=== PATIENT | female | born 1980 | race Hispanic/Latino ===

== ENCOUNTER 2020-06-25 00:15 | Inpatient (IN) | payer OTHER ==
[~2020-06-25] VITALS: Ht 162.8 cm; Wt 145.3 kg
[2020-06-25 00:42] LABS: ABG BASE EXCESS 0.2 mmol/L (-2.0-3.0); ABG HCO3 22.7 mmol/L (21.0-28.0); ABG OXYGEN SATURATION 94.2 % (95.0-99.0); ABG PCO2 31 mmHg (32-45)
[2020-06-25] MEDS ORDERED: ASPIRIN 325 MG TABLET ONE (01:36)
[2020-06-25] MEDS ORDERED: ONDANSETRON HCL 4 MG/2 ML VIAL ONE (01:36)
[2020-06-25] MEDS ORDERED: DEXAMETHASONE SOD PHOSPHATE 10MG/ML 1ML VIAL ONE (01:36)
[2020-06-25 01:37] LABS: BASOPHILS % (AUTO) 0.3 % (0.0-5.0); HEMATOCRIT 39.5 % (36-48); LYMPHOCYTES % (AUTO) 19.5 % (21.0-51.0); MEAN CORPUSCULAR HEMOGLOBIN 25.3 pg (27.0-33.0); MEAN CORPUSCULAR HGB CONC 32.2 g/dL (32.0-36.0); MEAN CORPUSCULAR VOLUME 78.7 fL (79-99); MONOCYTES % (AUTO) 4.1 % (3.0-13.0); NEUTROPHILS % (AUTO) 75.6 % (40.0-77.0); PLATELET COUNT (AUTO) 242 K/uL (130-400); RED BLOOD CELL COUNT(AUTO) 5.02 MIL/uL (4.00-5.50); RED CELL DISTRIBUTION WIDTH 17.3 % (11.0-15.5); WHITE BLOOD COUNT (AUTO) 6.7 K/uL (4.8-10.8)
[2020-06-25] MEDS ORDERED: CEFTRIAXONE SODIUM 1 GM ONE (01:37)
[2020-06-25] MEDS ORDERED: ACETAMINOPHEN EXTRA STRENGTH 500 MG TABLET ONE (03:03)
[2020-06-25 03:30] LABS: ALBUMIN 3.1 g/dL (3.5-5.0); BILIRUBIN,TOTAL 0.5 mg/dL (0.2-1.0); CREATININE 0.7 mg/dL (0.5-1.5); TOTAL PROTEIN, SERUM 7.9 g/dL (6.0-8.3)
[2020-06-25] MEDS ORDERED: FAMOTIDINE/PF 20 MG/2 ML VIAL IV ONE (04:33)
[2020-06-25] MEDS ORDERED: ERGOCALCIFEROL (VITAMIN D2) 50,000 UNIT CAPSULE PO ONE (04:45)
[2020-06-25] MEDS: AZITHROMYCIN 500MG+NS 250ML 250 ML IV SCH (04:45)
[2020-06-25] MEDS ORDERED: SODIUM CHLORIDE 0.9% 1000ML 1,000 ML IV SCH (05:00)
[2020-06-25] MEDS ORDERED: ONDANSETRON HCL 4 MG/2 ML VIAL IV PRN (05:00)
[2020-06-25] MEDS ORDERED: ACETAMINOPHEN 325 MG TAB PO PRN (05:00)
[2020-06-25] MEDS ORDERED: NITROGLYCERIN 0.4 MG SL TAB SL PRN (05:00)
[2020-06-25] MEDS ORDERED: ALBUTEROL INHALER 90MCG/INH IH ONE (05:43)
[2020-06-25 06:13] LABS: CREATINE KINASE, TOTAL 165 U/L (21-232); LACTATE DEHYDROGENASE 299 U/L (81-234); MYOGLOBIN 43 ng/mL (10-92); TROPONIN I < 0.04 ng/mL (0.00-0.06)
[2020-06-25] MEDS: CALCIUM CHLORIDE 100 MG/ML 10 ML SYG IVP SCH (06:15)
[2020-06-25] MEDS: CEFTRIAXONE SODIUM 1 GM IVP SCH ×2 (09:00→21:08)
[2020-06-25] MEDS: ENOXAPARIN SODIUM 40 MG/0.4 ML SYRINGE SQ SCH (09:00)
[2020-06-25] MEDS: ZINC SULFATE 220 CAPSULE PO SCH (09:00)
[2020-06-25] MEDS: FAMOTIDINE 20MG TAB 20 MG TAB PO SCH ×2 (09:00→21:06)
[2020-06-25] MEDS: ASCORBIC ACID 500 MG TAB PO SCH (09:00)
[2020-06-25] MEDS: ACETYLCYSTEINE 600 MG CAPSULE PO SCH ×2 (09:00→21:06)
[2020-06-25 09:13] VITALS: BP 125/72
[2020-06-25] MEDS: ALBUTEROL INHALER 90MCG/INH IH SCH ×4 (10:06→21:12)
[2020-06-25 12:00] VITALS: BP 142/68
[2020-06-25] MEDS ORDERED: ROCURONIUM BROMIDE 10MG/1ML 5ML VL IV ONE (12:57)
[2020-06-25] MEDS ORDERED: ETOMIDATE 2 MG/ML 10 ML VIAL IVP ONE (12:57)
[2020-06-25] MEDS ORDERED: SUCCINYLCHOLINE CHLORIDE 20 MG/ML 10 ML VIAL IVP ONE (12:57)
[2020-06-25 16:00] VITALS: BP 128/70
[2020-06-25] MEDS ORDERED: PHARMACY COMMUNICATION MISC SCH (16:45)
[2020-06-25] MEDS ORDERED: METO5VIA33 IV (18:38)
[2020-06-25 20:57] VITALS: BP 134/69
[2020-06-25] MEDS: ACETAMINOPHEN 325 MG TAB PO PRN (21:29)
[2020-06-25 23:58] VITALS: BP 132/82
[2020-06-26] MEDS: ALBUTEROL INHALER 90MCG/INH IH SCH ×6 (02:25→22:00)
[2020-06-26 03:57] VITALS: BP 134/72
[2020-06-26 04:13] LABS: BASOPHILS % (AUTO) 0.2 % (0.0-5.0); LYMPHOCYTES % (AUTO) 13.4 % (21.0-51.0); MEAN CORPUSCULAR HEMOGLOBIN 24.8 pg (27.0-33.0); MEAN CORPUSCULAR HGB CONC 31.3 g/dL (32.0-36.0); MEAN CORPUSCULAR VOLUME 79.3 fL (79-99); MONOCYTES % (AUTO) 4.2 % (3.0-13.0); NEUTROPHILS % (AUTO) 81.7 % (40.0-77.0); PLATELET COUNT (AUTO) 218 K/uL (130-400); RED BLOOD CELL COUNT(AUTO) 4.79 MIL/uL (4.00-5.50); RED CELL DISTRIBUTION WIDTH 17.1 % (11.0-15.5); WHITE BLOOD COUNT (AUTO) 9.5 K/uL (4.8-10.8)
[2020-06-26 04:31] LABS: BILIRUBIN,TOTAL 0.3 mg/dL (0.2-1.0); CREATININE 0.7 mg/dL (0.5-1.5); CRP QUANTITATIVE 65.9 mg/L (0.00-9.0); POTASSIUM 3.2 mmol/L (3.5-5.1); TOTAL PROTEIN, SERUM 7.7 g/dL (6.0-8.3)
[2020-06-26] MEDS: CALCIUM CHLORIDE 100 MG/ML 10 ML SYG IVP SCH (05:05)
[2020-06-26] MEDS: AZITHROMYCIN 500MG+NS 250ML 250 ML IV SCH (05:20)
[2020-06-26] MEDS ORDERED: BENZONATATE 100 MG CAPSULE PO PRN (06:45)
[2020-06-26] MEDS ORDERED: GUAIFENESIN-DM 200/20 MG 10 ML PO PRN (06:45)
[2020-06-26] MEDS ORDERED: COMPOUND IV REFRIGERATED 1 EACH IVSOLN MISC PRN (07:15)
[2020-06-26] MEDS ORDERED: REMDESIVIR (EUA) 520 200 MG in SODIUM CHLORIDE 0.9% 250 ML IV ONE (07:15)
[2020-06-26] MEDS: FAMOTIDINE 20MG TAB 20 MG TAB PO SCH ×2 (07:43→20:17)
[2020-06-26] MEDS: ASCORBIC ACID 500 MG TAB PO SCH (07:43)
[2020-06-26] MEDS: ZINC SULFATE 220 CAPSULE PO SCH (07:43)
[2020-06-26] MEDS: ENOXAPARIN SODIUM 40 MG/0.4 ML SYRINGE SQ SCH (07:44)
[2020-06-26 08:15] VITALS: BP 136/82
[2020-06-26] MEDS: CEFTRIAXONE SODIUM 1 GM IVP SCH ×2 (08:35→20:17)
[2020-06-26] MEDS: ACETYLCYSTEINE 600 MG CAPSULE PO SCH ×2 (08:35→20:17)
[2020-06-26] MEDS: POTASSIUM CHLORIDE 20 MEQ ERTAB PO SCH (08:53)
[2020-06-26] MEDS ORDERED: DEXAMETHASONE SOD PHOSPHATE 4 MG/ML 1ML VIAL IVP SCH (09:00)
[2020-06-26] MEDS: GUAIFENESIN-CODEINE 5 ML SYRUP PO PRN ×3 (10:17→18:03)
[2020-06-26 11:55] VITALS: BP 134/70
[2020-06-26] MEDS ORDERED: PHARMACY COMMUNICATION MISC SCH (13:45)
[2020-06-26 16:00] VITALS: BP 131/75
[2020-06-26 19:00] VITALS: BP 140/88
[2020-06-26] MEDS ORDERED: ALPRAZOLAM 0.25 MG TABLET PO PRN (20:00)
[2020-06-26] MEDS: ENOXAPARIN SODIUM 60 MG/0.6 ML SQ SCH (20:18)
[2020-06-26] MEDS ORDERED: MORPHINE SULFATE 2 MG/ML 1ML SYG IVP SCH (21:00)
[2020-06-26] MEDS ORDERED: MORPHINE SULFATE 2 MG/ML 1ML SYG ONE (21:09)
[2020-06-26 23:00] VITALS: BP 137/83
[2020-06-26 23:10] LABS: ABG BASE EXCESS 1.4 mmol/L (-2.0-3.0); ABG HCO3 26.3 mmol/L (21.0-28.0); ABG OXYGEN SATURATION 98.7 % (95.0-99.0); ABG PCO2 43 mmHg (32-45)
[2020-06-27] VITALS (42 sets, daily range): BP systolic 84–182; BP diastolic 35–91
[2020-06-27] MEDS: CALCIUM CHLORIDE 100 MG/ML 10 ML SYG IVP SCH (00:28)
[2020-06-27] MEDS: ACETAMINOPHEN 325 MG TAB PO PRN (00:34)
[2020-06-27] MEDS: ALBUTEROL INHALER 90MCG/INH IH SCH ×2 (02:10→07:07)
[2020-06-27 05:19] LABS: BASOPHILS % (AUTO) 0.1 % (0.0-5.0); EOSINOPHILS % (AUTO) 1.5 % (0.0-8.0); HEMATOCRIT 38.2 % (36-48); LYMPHOCYTES % (AUTO) 13.4 % (21.0-51.0); MEAN CORPUSCULAR HEMOGLOBIN 24.9 pg (27.0-33.0); MEAN CORPUSCULAR HGB CONC 31.4 g/dL (32.0-36.0); MEAN CORPUSCULAR VOLUME 79.4 fL (79-99); MONOCYTES % (AUTO) 4.7 % (3.0-13.0); NEUTROPHILS % (AUTO) 79.8 % (40.0-77.0); PLATELET COUNT (AUTO) 246 K/uL (130-400); RED BLOOD CELL COUNT(AUTO) 4.81 MIL/uL (4.00-5.50); RED CELL DISTRIBUTION WIDTH 17.2 % (11.0-15.5); WHITE BLOOD COUNT (AUTO) 7.8 K/uL (4.8-10.8)
[2020-06-27 05:30] LABS: ALBUMIN 2.9 g/dL (3.5-5.0); BILIRUBIN,TOTAL 0.4 mg/dL (0.2-1.0); CREATININE 0.5 mg/dL (0.5-1.5); CRP QUANTITATIVE 158.9 mg/L (0.00-9.0); POTASSIUM 4.2 mmol/L (3.5-5.1); TOTAL PROTEIN, SERUM 8.1 g/dL (6.0-8.3)
[2020-06-27] MEDS: AZITHROMYCIN 500MG+NS 250ML 250 ML IV SCH (05:36)
[2020-06-27] MEDS: REMDESIVIR LABS MISC SCH (06:00)
[2020-06-27 07:38] LABS: ABG OXYGEN SATURATION 94.2 % (95.0-99.0); ABG PCO2 44 mmHg (32-45)
[2020-06-27] MEDS ORDERED: FENTANYL CITRATE PF 0.05 MG/ML 1,000 MCG in SODIUM CHLORIDE 0.9% 100 ML IVPB SCH ×2 (07:55→09:00)
[2020-06-27] MEDS ORDERED: DEXMEDETOMIDINE HCL 200 MCG in SODIUM CHLORIDE 0.9% 50 ML IV STA (07:59)
[2020-06-27] MEDS ORDERED: NOREPINEPHRINE 4MG/NS 250ML 250 ML IV SCH (08:00)
[2020-06-27] MEDS ORDERED: DEXMEDETOMIDINE HCL 200 MCG in SODIUM CHLORIDE 0.9% 50 ML IV SCH (08:15)
[2020-06-27] MEDS ORDERED: FENTANYL 2500MCG+NS 250ML 250 ML IV ONE ×2 (08:55→22:33)
[2020-06-27] MEDS: DiphenhydrAMINE HCL 50 MG/ML VIAL IVP SCH (09:00)
[2020-06-27] MEDS ORDERED: BARICITINIB (EUA) 2 MG TABLET PO SCH (09:00)
[2020-06-27] MEDS ORDERED: TOCILIZUMAB IV ONE (09:00)
[2020-06-27] MEDS: ACETAMINOPHEN ELIXIR 650 MG/20.3 ML UDCUP NG SCH (09:00)
[2020-06-27] MEDS: PROPOFOL 1000 MG/100 ML 100 ML IV SCH ×6 (09:20→23:04)
[2020-06-27] MEDS ORDERED: MIDAZOLAM 100MG-0.9% NS 100ML 100ML BAG IV SCH (09:30)
[2020-06-27 10:25] LABS: INR 1.05 (0.85-1.15); PROTHROMBIN TIME 11.4 SEC (9.6-11.6)
[2020-06-27 10:27] LABS: PARTIAL THROMBOPLASTIN TIME 28.8 SEC (26.3-35.5)
[2020-06-27 12:40] LABS: ABG BASE EXCESS 2.7 mmol/L (-2.0-3.0); ABG HCO3 28.7 mmol/L (21.0-28.0); ABG PCO2 51 mmHg (32-45)
[2020-06-27] MEDS: ASCORBIC ACID 500 MG TAB PO SCH (12:56)
[2020-06-27] MEDS: LINEZOLID 600 MG/ISO-OSM 300 ML IV SCH ×2 (12:56→20:13)
[2020-06-27] MEDS: FAMOTIDINE 20MG TAB 20 MG TAB PO SCH ×2 (12:56→20:13)
[2020-06-27] MEDS: POTASSIUM CHLORIDE 20 MEQ ERTAB PO SCH (12:57)
[2020-06-27] MEDS: METHYLPREDNISOLONE SOD SUCC 40MG/ML 1ML IVP SCH (12:57)
[2020-06-27] MEDS: ZINC SULFATE 220 CAPSULE PO SCH (12:57)
[2020-06-27] MEDS: ENOXAPARIN SODIUM 60 MG/0.6 ML SQ SCH ×2 (12:58→20:13)
[2020-06-27] MEDS: MEROPENEM 1 GM VIAL IVP SCH ×2 (12:59→17:37)
[2020-06-27] MEDS: REMDESIVIR (EUA) 520 100 MG in SODIUM CHLORIDE 0.9% 250 ML IV SCH (12:59)
[2020-06-27] MEDS: TOCILIZUMAB 800 MG in SODIUM CHLORIDE 0.9% 100 ML IV SCH (13:00)
[2020-06-27 17:38] LABS: BASOPHILS % (AUTO) 0.3 % (0.0-5.0); HEMATOCRIT 39.9 % (36-48); LYMPHOCYTES % (AUTO) 10.2 % (21.0-51.0); MEAN CORPUSCULAR HEMOGLOBIN 25.9 pg (27.0-33.0); MEAN CORPUSCULAR HGB CONC 30.1 g/dL (32.0-36.0); MEAN CORPUSCULAR VOLUME 86.2 fL (79-99); MONOCYTES % (AUTO) 2.3 % (3.0-13.0); NEUTROPHILS % (AUTO) 86.9 % (40.0-77.0); PLATELET COUNT (AUTO) 195 K/uL (130-400); RED BLOOD CELL COUNT(AUTO) 4.63 MIL/uL (4.00-5.50); RED CELL DISTRIBUTION WIDTH 18.3 % (11.0-15.5); WHITE BLOOD COUNT (AUTO) 6.6 K/uL (4.8-10.8)
[2020-06-27 18:04] LABS: CREATININE 1.6 mg/dL (0.5-1.5); POTASSIUM 4.3 mmol/L (3.5-5.1)
[2020-06-27] MEDS: CISATRACURIUM BESYLATE 100 MG in SODIUM CHLORIDE 0.9% 100 ML IV SCH ×2 (18:06→22:49)
[2020-06-27] MEDS: METHYLPREDNISOLONE SOD SUCC 125MG/2ML VIAL IVP SCH (20:13)
[2020-06-28] VITALS (41 sets, daily range): BP systolic 96–152; BP diastolic 39–87
[2020-06-28] MEDS: MEROPENEM 1 GM VIAL IVP SCH ×3 (00:38→16:25)
[2020-06-28] MEDS: PROPOFOL 1000 MG/100 ML 100 ML IV SCH ×7 (01:44→22:30)
[2020-06-28] MEDS: AZITHROMYCIN 500MG+NS 250ML 250 ML IV SCH (04:50)
[2020-06-28 04:58] LABS: BASOPHILS % (AUTO) 0.1 % (0.0-5.0); HEMATOCRIT 37.5 % (36-48); LYMPHOCYTES % (AUTO) 11.1 % (21.0-51.0); MEAN CORPUSCULAR HEMOGLOBIN 25.6 pg (27.0-33.0); MEAN CORPUSCULAR HGB CONC 31.7 g/dL (32.0-36.0); MEAN CORPUSCULAR VOLUME 80.8 fL (79-99); MONOCYTES % (AUTO) 2.5 % (3.0-13.0); NEUTROPHILS % (AUTO) 85.7 % (40.0-77.0); PLATELET COUNT (AUTO) 263 K/uL (130-400); RED BLOOD CELL COUNT(AUTO) 4.64 MIL/uL (4.00-5.50); RED CELL DISTRIBUTION WIDTH 17.2 % (11.0-15.5); WHITE BLOOD COUNT (AUTO) 9.9 K/uL (4.8-10.8)
[2020-06-28] MEDS: REMDESIVIR LABS MISC SCH (05:48)
[2020-06-28 05:58] LABS: BILIRUBIN,DIRECT 0.3 mg/dL (0.0-0.3); BILIRUBIN,TOTAL 0.5 mg/dL (0.2-1.0); CREATININE 1.9 mg/dL (0.5-1.5); TOTAL PROTEIN, SERUM 7.2 g/dL (6.0-8.3)
[2020-06-28] MEDS: CALCIUM CHLORIDE 100 MG/ML 10 ML SYG IVP SCH (06:02)
[2020-06-28 06:24] LABS: CRP QUANTITATIVE 189.5 mg/L (0.00-9.0)
[2020-06-28 07:07] LABS: ABG BASE EXCESS -5.4 mmol/L (-2.0-3.0); ABG HCO3 23.4 mmol/L (21.0-28.0); ABG OXYGEN SATURATION 98.8 % (95.0-99.0); ABG PCO2 59 mmHg (32-45)
[2020-06-28] MEDS: DiphenhydrAMINE HCL 50 MG/ML VIAL IVP SCH (08:26)
[2020-06-28] MEDS: FAMOTIDINE 20MG TAB 20 MG TAB PO SCH ×2 (08:26→19:44)
[2020-06-28] MEDS: ZINC SULFATE 220 CAPSULE PO SCH (08:26)
[2020-06-28] MEDS: METHYLPREDNISOLONE SOD SUCC 125MG/2ML VIAL IVP SCH ×2 (08:26→19:45)
[2020-06-28] MEDS: ASCORBIC ACID 500 MG TAB PO SCH (08:26)
[2020-06-28] MEDS: POTASSIUM CHLORIDE 20 MEQ ERTAB PO SCH (08:26)
[2020-06-28] MEDS: ENOXAPARIN SODIUM 60 MG/0.6 ML SQ SCH ×2 (08:28→19:45)
[2020-06-28] MEDS: METHYLPREDNISOLONE SOD SUCC 40MG/ML 1ML IVP SCH (08:39)
[2020-06-28] MEDS: ACETAMINOPHEN ELIXIR 650 MG/20.3 ML UDCUP NG SCH (08:39)
[2020-06-28] MEDS: TOCILIZUMAB 800 MG in SODIUM CHLORIDE 0.9% 100 ML IV SCH (09:00)
[2020-06-28] MEDS ORDERED: FENTANYL 2500MCG+NS 250ML 250 ML IV ONE (10:32)
[2020-06-28] MEDS: LINEZOLID 600 MG/ISO-OSM 300 ML IV SCH ×2 (10:46→21:01)
[2020-06-28] MEDS: CISATRACURIUM BESYLATE 100 MG in SODIUM CHLORIDE 0.9% 100 ML IV SCH ×2 (10:53→19:38)
[2020-06-28] MEDS: ARTIFICAL TEARS SOL 15 ML OS SCH ×4 (12:13→23:37)
[2020-06-28] MEDS: REMDESIVIR (EUA) 520 100 MG in SODIUM CHLORIDE 0.9% 250 ML IV SCH (12:13)
[2020-06-28] MEDS: MIDODRINE HCL 5 MG TABLET GT SCH ×2 (15:33→21:01)
[2020-06-28 20:03] LABS: APPEARANCE,URINE SL CLOUDY (CLEAR); BILIRUBIN,URINE NEGATIVE (NEGATIVE); COLOR,URINE YELLOW (YELLOW); GLUCOSE, URINE (UA) NEGATIVE (NEGATIVE); KETONES,URINE 5 mg/dL (NEGATIVE); LEUKOCYTE ESTERASE ,URINE NEGATIVE (NEGATIVE); NITRATE,URINE NEGATIVE (NEGATIVE); OCCULT BLOOD,URINE MODERATE (NEGATIVE); PROTEIN,URINE 100 mg/dL (NEGATIVE); UROBILINOGEN,URINE 0.2 mg/dL (0.2-1.0)
[2020-06-28 20:05] LABS: CHLORIDE,URINE RANDOM 55 mmol/L (110-250); POTASSIUM,URINE RANDOM 25 mmol/L (25-125); SODIUM,URINE RANDOM 22 mmol/l (40-220)
[2020-06-28 20:20] LABS: BACTERIA,URINE Few /HPF (None Seen); YEAST,URINE BUDDING Moderate /HPF (None Seen)
[2020-06-28 20:21] LABS: MUCUS,URINE Few LPF (None Seen); SQUAMOUS EPITHELIAL CELL,UR Few /HPF (0-2)
[2020-06-28] MEDS: FENTANYL 2500MCG+NS 250ML 250 ML IV SCH (23:38)
[2020-06-29] VITALS (23 sets, daily range): BP systolic 102–132; BP diastolic 52–80
[2020-06-29] MEDS: CISATRACURIUM BESYLATE 100 MG in SODIUM CHLORIDE 0.9% 100 ML IV SCH ×3 (00:58→22:41)
[2020-06-29] MEDS: MEROPENEM 1 GM VIAL IVP SCH ×3 (01:42→16:48)
[2020-06-29] MEDS: PROPOFOL 1000 MG/100 ML 100 ML IV SCH ×7 (01:48→23:19)
[2020-06-29] MEDS: ARTIFICAL TEARS SOL 15 ML OS SCH ×5 (03:19→20:19)
[2020-06-29 04:12] LABS: BASOPHILS % (AUTO) 0.1 % (0.0-5.0); HEMATOCRIT 36.3 % (36-48); LYMPHOCYTES % (AUTO) 5.4 % (21.0-51.0); MEAN CORPUSCULAR HEMOGLOBIN 25.8 pg (27.0-33.0); MEAN CORPUSCULAR HGB CONC 32.2 g/dL (32.0-36.0); MONOCYTES % (AUTO) 5.5 % (3.0-13.0); PLATELET COUNT (AUTO) 342 K/uL (130-400); RED BLOOD CELL COUNT(AUTO) 4.54 MIL/uL (4.00-5.50); RED CELL DISTRIBUTION WIDTH 16.8 % (11.0-15.5); WHITE BLOOD COUNT (AUTO) 15.4 K/uL (4.8-10.8)
[2020-06-29] MEDS: AZITHROMYCIN 500MG+NS 250ML 250 ML IV SCH (04:24)
[2020-06-29] MEDS: REMDESIVIR LABS MISC SCH (04:26)
[2020-06-29] MEDS: CALCIUM CHLORIDE 100 MG/ML 10 ML SYG IVP SCH (04:26)
[2020-06-29 04:29] LABS: ALBUMIN 2.5 g/dL (3.5-5.0); BILIRUBIN,DIRECT 0.2 mg/dL (0.0-0.3); BILIRUBIN,TOTAL 0.4 mg/dL (0.2-1.0); CRP QUANTITATIVE 100.2 mg/L (0.00-9.0); MAGNESIUM 2.5 mg/dL (1.80-2.40); PHOSPHORUS 3.5 mg/dL (2.5-4.9); POTASSIUM 4.2 mmol/L (3.5-5.1)
[2020-06-29] MEDS: MIDODRINE HCL 5 MG TABLET GT SCH ×3 (05:28→21:53)
[2020-06-29 07:07] LABS: ABG BASE EXCESS -3.3 mmol/L (-2.0-3.0); ABG HCO3 23.8 mmol/L (21.0-28.0); ABG OXYGEN SATURATION 99.2 % (95.0-99.0); ABG PCO2 51 mmHg (32-45)
[2020-06-29] MEDS: METHYLPREDNISOLONE SOD SUCC 125MG/2ML VIAL IVP SCH (08:02)
[2020-06-29] MEDS: FAMOTIDINE 20MG TAB 20 MG TAB PO SCH ×2 (08:03→20:19)
[2020-06-29] MEDS: ZINC SULFATE 220 CAPSULE PO SCH (08:03)
[2020-06-29] MEDS: ASCORBIC ACID 500 MG TAB PO SCH (08:03)
[2020-06-29] MEDS: LINEZOLID 600 MG/ISO-OSM 300 ML IV SCH (08:03)
[2020-06-29] MEDS: POTASSIUM CHLORIDE 20 MEQ ERTAB PO SCH (08:03)
[2020-06-29] MEDS: ENOXAPARIN SODIUM 60 MG/0.6 ML SQ SCH ×2 (08:05→20:20)
[2020-06-29] MEDS: METHYLPREDNISOLONE SOD SUCC 40MG/ML 1ML IVP SCH (08:53)
[2020-06-29] MEDS: ACETAMINOPHEN ELIXIR 650 MG/20.3 ML UDCUP NG SCH (08:54)
[2020-06-29] MEDS: REMDESIVIR (EUA) 520 100 MG in SODIUM CHLORIDE 0.9% 250 ML IV SCH (12:11)
[2020-06-29] MEDS: FENTANYL 2500MCG+NS 250ML 250 ML IV SCH (12:41)
[2020-06-30] VITALS (37 sets, daily range): BP systolic 106–205; BP diastolic 49–102
[2020-06-30] MEDS: ARTIFICAL TEARS SOL 15 ML OS SCH ×6 (01:34→20:17)
[2020-06-30] MEDS: MEROPENEM 1 GM VIAL IVP SCH ×3 (01:34→17:35)
[2020-06-30] MEDS: PROPOFOL 1000 MG/100 ML 100 ML IV SCH ×5 (02:24→22:02)
[2020-06-30] MEDS: FENTANYL 2500MCG+NS 250ML 250 ML IV SCH ×2 (02:43→18:41)
[2020-06-30] MEDS: AZITHROMYCIN 500MG+NS 250ML 250 ML IV SCH (04:01)
[2020-06-30 04:30] LABS: BASOPHILS % (AUTO) 0.1 % (0.0-5.0); HEMATOCRIT 33.7 % (36-48); LYMPHOCYTES % (AUTO) 5.2 % (21.0-51.0); MEAN CORPUSCULAR HEMOGLOBIN 25.7 pg (27.0-33.0); MEAN CORPUSCULAR VOLUME 80.2 fL (79-99); MONOCYTES % (AUTO) 7.7 % (3.0-13.0); NEUTROPHILS % (AUTO) 85.9 % (40.0-77.0); PLATELET COUNT (AUTO) 314 K/uL (130-400); RED CELL DISTRIBUTION WIDTH 17.1 % (11.0-15.5); WHITE BLOOD COUNT (AUTO) 14.1 K/uL (4.8-10.8)
[2020-06-30 04:49] LABS: ALBUMIN 2.4 g/dL (3.5-5.0); BILIRUBIN,DIRECT 0.1 mg/dL (0.0-0.3); BILIRUBIN,TOTAL 0.3 mg/dL (0.2-1.0); CRP QUANTITATIVE 42.3 mg/L (0.00-9.0); MAGNESIUM 2.5 mg/dL (1.80-2.40); PHOSPHORUS 6.2 mg/dL (2.5-4.9); POTASSIUM 4.5 mmol/L (3.5-5.1); TOTAL PROTEIN, SERUM 6.6 g/dL (6.0-8.3)
[2020-06-30] MEDS: MIDODRINE HCL 5 MG TABLET GT SCH ×2 (05:23→12:43)
[2020-06-30] MEDS: CALCIUM CHLORIDE 100 MG/ML 10 ML SYG IVP SCH (05:23)
[2020-06-30] MEDS: REMDESIVIR LABS MISC SCH (05:23)
[2020-06-30 07:48] LABS: ABG HCO3 22.1 mmol/L (21.0-28.0); ABG OXYGEN SATURATION 98.7 % (95.0-99.0); ABG PCO2 44 mmHg (32-45)
[2020-06-30] MEDS ORDERED: DOCUSATE NA 100MG/10ML UDCUP GT SCH (09:00)
[2020-06-30] MEDS ORDERED: SENNOSIDES 8.6 MG TABLET GT SCH (09:00)
[2020-06-30] MEDS: POTASSIUM CHLORIDE 20 MEQ ERTAB PO SCH (09:51)
[2020-06-30] MEDS: DEXAMETHASONE SOD PHOSPHATE 4 MG/ML 1ML VIAL IVP SCH ×2 (09:52→20:17)
[2020-06-30] MEDS: ASCORBIC ACID 500 MG TAB PO SCH (09:52)
[2020-06-30] MEDS: ZINC SULFATE 220 CAPSULE PO SCH (09:52)
[2020-06-30] MEDS: ACETAMINOPHEN ELIXIR 650 MG/20.3 ML UDCUP NG SCH (09:52)
[2020-06-30] MEDS: ENOXAPARIN SODIUM 60 MG/0.6 ML SQ SCH ×2 (09:53→20:18)
[2020-06-30] MEDS: CISATRACURIUM BESYLATE 100 MG in SODIUM CHLORIDE 0.9% 100 ML IV SCH (09:55)
[2020-06-30] MEDS: FUROSEMIDE 10 MG/ML 10ML VIAL IVP SCH ×3 (09:55→21:32)
[2020-06-30] MEDS: REMDESIVIR (EUA) 520 100 MG in SODIUM CHLORIDE 0.9% 250 ML IV SCH (13:57)
[2020-06-30] MEDS: LACTULOSE 20 GM/30 ML UDCUP GT SCH ×2 (14:19→21:32)
[2020-07-01] VITALS (42 sets, daily range): BP systolic 102–196; BP diastolic 44–99
[2020-07-01] MEDS: MEROPENEM 1 GM VIAL IVP SCH ×3 (00:28→15:56)
[2020-07-01] MEDS: ARTIFICAL TEARS SOL 15 ML OS SCH ×6 (00:28→20:13)
[2020-07-01] MEDS: PROPOFOL 1000 MG/100 ML 100 ML IV SCH ×8 (01:02→22:30)
[2020-07-01] MEDS: CISATRACURIUM BESYLATE 100 MG in SODIUM CHLORIDE 0.9% 100 ML IV SCH ×4 (03:00→18:33)
[2020-07-01 04:12] LABS: CRP QUANTITATIVE 33.4 mg/L (0.00-9.0)
[2020-07-01] MEDS: AZITHROMYCIN 500MG+NS 250ML 250 ML IV SCH (04:24)
[2020-07-01 04:43] LABS: ALBUMIN 2.5 g/dL (3.5-5.0); BILIRUBIN,DIRECT 0.1 mg/dL (0.0-0.3); BILIRUBIN,TOTAL 0.3 mg/dL (0.2-1.0); TOTAL PROTEIN, SERUM 6.4 g/dL (6.0-8.3)
[2020-07-01] MEDS: FUROSEMIDE 10 MG/ML 10ML VIAL IVP SCH ×3 (06:13→22:42)
[2020-07-01] MEDS: LACTULOSE 20 GM/30 ML UDCUP GT SCH ×3 (06:13→22:42)
[2020-07-01] MEDS: REMDESIVIR LABS MISC SCH (06:13)
[2020-07-01] MEDS: CALCIUM CHLORIDE 100 MG/ML 10 ML SYG IVP SCH (06:15)
[2020-07-01 06:38] LABS: ABG OXYGEN SATURATION 86.6 % (95.0-99.0); ABG PCO2 54 mmHg (32-45)
[2020-07-01] MEDS ORDERED: DEXTROSE 50%-WATER 50 ML DISP.SYRIN IV PRN (08:30)
[2020-07-01] MEDS ORDERED: GLUCAGON 1MG KIT 1 MG ML IM PRN (08:30)
[2020-07-01] MEDS: LANSOPRAZOLE 15 MG SOLU TAB GT SCH (08:58)
[2020-07-01] MEDS: ENOXAPARIN SODIUM 60 MG/0.6 ML SQ SCH ×2 (08:58→20:37)
[2020-07-01] MEDS: RIFAXIMIN 550 MG TABLET GT SCH ×2 (08:59→20:36)
[2020-07-01] MEDS ORDERED: METOPROLOL TARTRATE 25 MG TAB GT SCH ×2 (09:00→14:34)
[2020-07-01] MEDS: ACETAMINOPHEN ELIXIR 650 MG/20.3 ML UDCUP NG SCH (09:00)
[2020-07-01] MEDS: POTASSIUM CHLORIDE 20 MEQ ERTAB PO SCH (09:00)
[2020-07-01] MEDS: INSULIN GLARGINE 100 UNITS/ML 10 ML VIAL SQ SCH ×2 (09:25→20:42)
[2020-07-01] MEDS ORDERED: PHARMACY COMMUNICATION MISC SCH (09:53)
[2020-07-01] MEDS: INSULIN HUMULIN R 100 UNIT/ML 3ML SQ SCH ×3 (11:05→20:41)
[2020-07-01] MEDS: SODIUM CHLORIDE 0.9% IV NR (11:21)
[2020-07-01] MEDS: METHYLPREDNISOLONE SOD SUCC IV NR (11:21)
[2020-07-01] MEDS ORDERED: FENTANYL 2500MCG+NS 250ML 250 ML IV ONE (12:52)
[2020-07-01] MEDS ORDERED: LACTULOSE 20 GM/30 ML UDCUP ONE (13:13)
[2020-07-01] MEDS ORDERED: FUROSEMIDE 10 MG/ML 10ML VIAL ONE (13:13)
[2020-07-01] MEDS ORDERED: HYDRALAZINE HCL 20 MG/ML VIAL ONE (14:37)
[2020-07-01] MEDS ORDERED: HYDRALAZINE HCL 20 MG/ML VIAL IV SCH (14:45)
[2020-07-01] MEDS: FENTANYL 2500MCG+NS 250ML 250 ML IV SCH (18:40)
[2020-07-01] MEDS: METOPROLOL TARTRATE 50 MG TAB GT SCH (20:36)
[2020-07-02] VITALS (46 sets, daily range): BP systolic 83–179; BP diastolic 36–102
[2020-07-02] MEDS: METHYLPREDNISOLONE SOD SUCC IV NR ×2 (00:36→12:24)
[2020-07-02] MEDS: SODIUM CHLORIDE 0.9% IV NR ×2 (00:36→12:24)
[2020-07-02] MEDS: ARTIFICAL TEARS SOL 15 ML OS SCH ×6 (00:43→20:13)
[2020-07-02] MEDS: MEROPENEM 1 GM VIAL IVP SCH ×3 (01:38→16:14)
[2020-07-02] MEDS: PROPOFOL 1000 MG/100 ML 100 ML IV SCH ×6 (01:39→23:40)
[2020-07-02 04:51] LABS: BASOPHILS % (AUTO) 0.6 % (0.0-5.0); HEMATOCRIT 39.6 % (36-48); LYMPHOCYTES % (AUTO) 5.8 % (21.0-51.0); MEAN CORPUSCULAR HEMOGLOBIN 24.6 pg (27.0-33.0); MEAN CORPUSCULAR HGB CONC 31.1 g/dL (32.0-36.0); MEAN CORPUSCULAR VOLUME 79.4 fL (79-99); MONOCYTES % (AUTO) 4.9 % (3.0-13.0); NEUTROPHILS % (AUTO) 80.4 % (40.0-77.0); PLATELET COUNT (AUTO) 329 K/uL (130-400); RED BLOOD CELL COUNT(AUTO) 4.99 MIL/uL (4.00-5.50); RED CELL DISTRIBUTION WIDTH 17.3 % (11.0-15.5); WHITE BLOOD COUNT (AUTO) 14.2 K/uL (4.8-10.8)
[2020-07-02] MEDS: FUROSEMIDE 10 MG/ML 10ML VIAL IVP SCH (05:15)
[2020-07-02] MEDS: LACTULOSE 20 GM/30 ML UDCUP GT SCH ×2 (05:15→20:14)
[2020-07-02 05:19] LABS: ALBUMIN 2.8 g/dL (3.5-5.0); BILIRUBIN,DIRECT 0.2 mg/dL (0.0-0.3); BILIRUBIN,TOTAL 0.4 mg/dL (0.2-1.0); CRP QUANTITATIVE 14.4 mg/L (0.00-9.0); MAGNESIUM 2.6 mg/dL (1.80-2.40); PHOSPHORUS 5.7 mg/dL (2.5-4.9); POTASSIUM 4.1 mmol/L (3.5-5.1); TOTAL PROTEIN, SERUM 7.1 g/dL (6.0-8.3)
[2020-07-02] MEDS: CALCIUM CHLORIDE 100 MG/ML 10 ML SYG IVP SCH (06:15)
[2020-07-02] MEDS: INSULIN HUMULIN R 100 UNIT/ML 3ML SQ SCH ×4 (06:39→20:17)
[2020-07-02 06:48] LABS: ABG HCO3 31.6 mmol/L (21.0-28.0); ABG OXYGEN SATURATION 87.8 % (95.0-99.0); ABG PCO2 55 mmHg (32-45)
[2020-07-02] MEDS: ACETAMINOPHEN ELIXIR 650 MG/20.3 ML UDCUP NG SCH (07:22)
[2020-07-02] MEDS: METOPROLOL TARTRATE 50 MG TAB GT SCH (08:26)
[2020-07-02] MEDS: RIFAXIMIN 550 MG TABLET GT SCH ×2 (08:49→20:13)
[2020-07-02] MEDS: POTASSIUM CHLORIDE 20 MEQ ERTAB PO SCH (08:49)
[2020-07-02] MEDS: LANSOPRAZOLE 15 MG SOLU TAB GT SCH (08:50)
[2020-07-02] MEDS: ENOXAPARIN SODIUM 60 MG/0.6 ML SQ SCH ×2 (08:50→20:14)
[2020-07-02] MEDS: AZITHROMYCIN 250 MG TABLET PO SCH (10:53)
[2020-07-02] MEDS: CISATRACURIUM BESYLATE 100 MG in SODIUM CHLORIDE 0.9% 100 ML IV SCH ×3 (11:23→22:41)
[2020-07-02] MEDS ORDERED: METOPROLOL TARTRATE 25 MG TAB PO SCH (14:45)
[2020-07-02] MEDS: FENTANYL 2500MCG+NS 250ML 250 ML IV SCH (19:33)
[2020-07-02] MEDS: METOPROLOL TARTRATE 25 MG TAB GT SCH (20:13)
[2020-07-02] MEDS: INSULIN GLARGINE 100 UNITS/ML 10 ML VIAL SQ SCH (20:18)
[2020-07-02] MEDS ORDERED: FUROSEMIDE 10 MG/ML 4ML VIAL IVP SCH (21:00)
[2020-07-03] VITALS (35 sets, daily range): BP systolic 110–192; BP diastolic 59–112
[2020-07-03] MEDS: MEROPENEM 1 GM VIAL IVP SCH ×3 (00:14→17:09)
[2020-07-03] MEDS: ARTIFICAL TEARS SOL 15 ML OS SCH ×6 (00:14→19:42)
[2020-07-03] MEDS: METHYLPREDNISOLONE SOD SUCC IV NR ×2 (02:33→19:22)
[2020-07-03] MEDS: SODIUM CHLORIDE 0.9% IV NR ×2 (02:33→19:22)
[2020-07-03] MEDS: PROPOFOL 1000 MG/100 ML 100 ML IV SCH ×7 (03:20→23:21)
[2020-07-03 04:17] LABS: BASOPHILS % (AUTO) 0.5 % (0.0-5.0); HEMATOCRIT 42.1 % (36-48); LYMPHOCYTES % (AUTO) 4.7 % (21.0-51.0); MEAN CORPUSCULAR HGB CONC 31.6 g/dL (32.0-36.0); MONOCYTES % (AUTO) 7.7 % (3.0-13.0); NEUTROPHILS % (AUTO) 79.6 % (40.0-77.0); NUCLEATED RED BLOOD CELLS 0.2 % (0.0-0.19); PLATELET COUNT (AUTO) 347 K/uL (130-400); RED BLOOD CELL COUNT(AUTO) 5.33 MIL/uL (4.00-5.50)
[2020-07-03] MEDS: CALCIUM CHLORIDE 100 MG/ML 10 ML SYG IVP SCH (04:29)
[2020-07-03 04:50] LABS: PLATELET MORPHOLOGY PLT CLUMPS PRESENT
[2020-07-03 05:09] LABS: ALBUMIN 2.8 g/dL (3.5-5.0); BILIRUBIN,TOTAL 0.6 mg/dL (0.2-1.0); CREATININE 1.8 mg/dL (0.5-1.5); POTASSIUM 3.7 mmol/L (3.5-5.1); TOTAL PROTEIN, SERUM 6.7 g/dL (6.0-8.3)
[2020-07-03] MEDS: INSULIN HUMULIN R 100 UNIT/ML 3ML SQ SCH ×3 (06:16→17:11)
[2020-07-03 06:39] LABS: ABG BASE EXCESS 7.6 mmol/L (-2.0-3.0); ABG HCO3 33.8 mmol/L (21.0-28.0); ABG OXYGEN SATURATION 87.5 % (95.0-99.0); ABG PCO2 54 mmHg (32-45)
[2020-07-03] MEDS: ACETAMINOPHEN ELIXIR 650 MG/20.3 ML UDCUP NG SCH (09:00)
[2020-07-03] MEDS: RIFAXIMIN 550 MG TABLET GT SCH ×2 (09:24→20:23)
[2020-07-03] MEDS: LANSOPRAZOLE 15 MG SOLU TAB GT SCH (09:24)
[2020-07-03] MEDS: METOPROLOL TARTRATE 25 MG TAB GT SCH ×2 (09:24→20:23)
[2020-07-03] MEDS: ENOXAPARIN SODIUM 60 MG/0.6 ML SQ SCH ×2 (09:25→20:24)
[2020-07-03] MEDS: POTASSIUM CHLORIDE 20 MEQ ERTAB PO SCH (09:32)
[2020-07-03] MEDS: LACTULOSE 20 GM/30 ML UDCUP GT SCH ×2 (09:32→19:43)
[2020-07-03] MEDS: AZITHROMYCIN 250 MG TABLET PO SCH (09:32)
[2020-07-03] MEDS: INSULIN GLARGINE 100 UNITS/ML 10 ML VIAL SQ SCH ×3 (09:35→20:25)
[2020-07-03] MEDS: FENTANYL 2500MCG+NS 250ML 250 ML IV SCH ×2 (19:22→19:43)
[2020-07-03] MEDS ORDERED: PHARMACY COMMUNICATION MISC SCH (20:15)
[2020-07-03] MEDS ORDERED: VECURONIUM BROMIDE 10 MG ML IV PRN (23:00)
[2020-07-04] VITALS (45 sets, daily range): BP systolic 106–178; BP diastolic 51–87
[2020-07-04] MEDS: ARTIFICAL TEARS SOL 15 ML OS SCH ×7 (00:02→23:43)
[2020-07-04] MEDS: INSULIN HUMULIN R 100 UNIT/ML 3ML SQ SCH ×5 (00:11→23:46)
[2020-07-04] MEDS: MEROPENEM 1 GM VIAL IVP SCH ×3 (00:50→16:11)
[2020-07-04] MEDS: PROPOFOL 1000 MG/100 ML 100 ML IV SCH ×6 (02:20→23:09)
[2020-07-04] MEDS: CALCIUM CHLORIDE 100 MG/ML 10 ML SYG IVP SCH ×2 (04:02→23:48)
[2020-07-04 04:19] LABS: BASOPHILS % (AUTO) 0.2 % (0.0-5.0); HEMATOCRIT 39.5 % (36-48); LYMPHOCYTES % (AUTO) 4.4 % (21.0-51.0); MEAN CORPUSCULAR HEMOGLOBIN 25.7 pg (27.0-33.0); MEAN CORPUSCULAR HGB CONC 32.2 g/dL (32.0-36.0); MONOCYTES % (AUTO) 10.1 % (3.0-13.0); NEUTROPHILS % (AUTO) 80.6 % (40.0-77.0); NUCLEATED RED BLOOD CELLS 0.3 % (0.0-0.19); PLATELET COUNT (AUTO) 275 K/uL (130-400); RED BLOOD CELL COUNT(AUTO) 4.94 MIL/uL (4.00-5.50); RED CELL DISTRIBUTION WIDTH 18.6 % (11.0-15.5); WHITE BLOOD COUNT (AUTO) 17.6 K/uL (4.8-10.8)
[2020-07-04 04:32] LABS: ALBUMIN 2.8 g/dL (3.5-5.0); BILIRUBIN,TOTAL 0.6 mg/dL (0.2-1.0); CREATININE 1.6 mg/dL (0.5-1.5); CRP QUANTITATIVE 3.1 mg/L (0.00-9.0); TOTAL PROTEIN, SERUM 6.2 g/dL (6.0-8.3)
[2020-07-04 04:50] LABS: PLATELET MORPHOLOGY LARGE PLTS PRESENT
[2020-07-04] MEDS: LACTULOSE 20 GM/30 ML UDCUP GT SCH ×2 (08:00→20:12)
[2020-07-04] MEDS: POTASSIUM CHLORIDE 20 MEQ ERTAB PO SCH (08:01)
[2020-07-04] MEDS: RIFAXIMIN 550 MG TABLET GT SCH ×2 (08:01→20:12)
[2020-07-04] MEDS: LANSOPRAZOLE 15 MG SOLU TAB GT SCH (08:01)
[2020-07-04] MEDS: METOPROLOL TARTRATE 25 MG TAB GT SCH ×2 (08:01→20:12)
[2020-07-04] MEDS: ACETAMINOPHEN ELIXIR 650 MG/20.3 ML UDCUP NG SCH ×2 (08:01→21:21)
[2020-07-04] MEDS: ENOXAPARIN SODIUM 60 MG/0.6 ML SQ SCH ×2 (08:02→20:14)
[2020-07-04] MEDS: INSULIN GLARGINE 100 UNITS/ML 10 ML VIAL SQ SCH ×3 (09:00→20:13)
[2020-07-04] MEDS: SODIUM CHLORIDE 0.9% IV NR (10:14)
[2020-07-04] MEDS: METHYLPREDNISOLONE SOD SUCC IV NR (10:14)
[2020-07-04] MEDS ORDERED: VANCOMYCIN PROTOCOL PER PHARMACY IV SCH (14:15)
[2020-07-04] MEDS ORDERED: VANCOMYCIN 1GM+NS 250ML 250 ML IV ONE (15:00)
[2020-07-04 18:13] LABS: APPEARANCE,URINE CLOUDY (CLEAR); BILIRUBIN,URINE NEGATIVE (NEGATIVE); COLOR,URINE YELLOW (YELLOW); GLUCOSE, URINE (UA) >=1000 mg/dL (NEGATIVE); KETONES,URINE NEGATIVE (NEGATIVE); LEUKOCYTE ESTERASE ,URINE TRACE (NEGATIVE); NITRATE,URINE NEGATIVE (NEGATIVE); OCCULT BLOOD,URINE SMALL (NEGATIVE); PROTEIN,URINE TRACE mg/dL (NEGATIVE); UROBILINOGEN,URINE 0.2 mg/dL (0.2-1.0)
[2020-07-04 18:22] LABS: RBC,URINE None Seen /HPF (0-1); YEAST,URINE BUDDING Moderate /HPF (None Seen)
[2020-07-04 18:23] LABS: BACTERIA,URINE Rare /HPF (None Seen); CHLORIDE,URINE RANDOM 38 mmol/L (110-250); POTASSIUM,URINE RANDOM 27 mmol/L (25-125); SODIUM,URINE RANDOM < 13 mmol/l (40-220)
[2020-07-04 18:24] LABS: URIC ACID CRYSTALS,URINE Many /LPF (None Seen)
[2020-07-05] VITALS (47 sets, daily range): BP systolic 95–173; BP diastolic 35–106
[2020-07-05] MEDS: MEROPENEM 1 GM VIAL IVP SCH ×3 (00:30→16:41)
[2020-07-05] MEDS: METHYLPREDNISOLONE SOD SUCC IV NR (00:31)
[2020-07-05] MEDS: SODIUM CHLORIDE 0.9% IV NR (00:31)
[2020-07-05] MEDS: PROPOFOL 1000 MG/100 ML 100 ML IV SCH ×2 (03:08→06:14)
[2020-07-05] MEDS: ARTIFICAL TEARS SOL 15 ML OS SCH ×6 (03:31→23:18)
[2020-07-05 04:21] LABS: BASOPHILS % (AUTO) 0.2 % (0.0-5.0); HEMATOCRIT 42.9 % (36-48); LYMPHOCYTES % (AUTO) 3.8 % (21.0-51.0); MEAN CORPUSCULAR HEMOGLOBIN 25.2 pg (27.0-33.0); MEAN CORPUSCULAR HGB CONC 30.5 g/dL (32.0-36.0); MEAN CORPUSCULAR VOLUME 82.7 fL (79-99); MONOCYTES % (AUTO) 7.9 % (3.0-13.0); NEUTROPHILS % (AUTO) 84.1 % (40.0-77.0); NUCLEATED RED BLOOD CELLS 0.7 % (0.0-0.19); PLATELET COUNT (AUTO) 211 K/uL (130-400); RED BLOOD CELL COUNT(AUTO) 5.19 MIL/uL (4.00-5.50); RED CELL DISTRIBUTION WIDTH 19.3 % (11.0-15.5); WHITE BLOOD COUNT (AUTO) 25.9 K/uL (4.8-10.8)
[2020-07-05 04:51] LABS: CREATININE 1.9 mg/dL (0.5-1.5); POTASSIUM 4.3 mmol/L (3.5-5.1)
[2020-07-05] MEDS ORDERED: VANCOMYCIN 500MG+NS 100ML 100 ML IV SCH (06:00)
[2020-07-05] MEDS: INSULIN HUMULIN R 100 UNIT/ML 3ML SQ SCH ×4 (06:04→23:24)
[2020-07-05 06:58] LABS: ABG HCO3 29.6 mmol/L (21.0-28.0); ABG PCO2 43 mmHg (32-45)
[2020-07-05] MEDS: RIFAXIMIN 550 MG TABLET GT SCH ×2 (08:04→22:09)
[2020-07-05] MEDS: LANSOPRAZOLE 15 MG SOLU TAB GT SCH (08:04)
[2020-07-05] MEDS: LACTULOSE 20 GM/30 ML UDCUP GT SCH ×2 (08:04→22:09)
[2020-07-05] MEDS: METOPROLOL TARTRATE 25 MG TAB GT SCH ×2 (08:04→21:00)
[2020-07-05] MEDS: ACETAMINOPHEN ELIXIR 650 MG/20.3 ML UDCUP NG SCH (08:04)
[2020-07-05] MEDS: ENOXAPARIN SODIUM 60 MG/0.6 ML SQ SCH (08:05)
[2020-07-05] MEDS: POTASSIUM CHLORIDE 20 MEQ ERTAB PO SCH (08:05)
[2020-07-05] MEDS: INSULIN GLARGINE 100 UNITS/ML 10 ML VIAL SQ SCH (08:06)
[2020-07-05] MEDS ORDERED: MIDAZOLAM 100MG-0.9% NS 100ML 100ML BAG IV ONE (08:30)
[2020-07-05] MEDS ORDERED: LACTATED RINGERS 1000ML 1,000 ML IV SCH (08:30)
[2020-07-05] MEDS: PANTOPRAZOLE 40 MG/VIAL IVP SCH ×2 (08:56→22:09)
[2020-07-05] MEDS: DEXAMETHASONE 4 MG TAB NG SCH ×2 (08:56→22:09)
[2020-07-05] MEDS ORDERED: INSULIN GLARGINE 100 UNITS/ML 10 ML VIAL SQ SCH (09:00)
[2020-07-05] MEDS: LINEZOLID 600 MG/ISO-OSM 300 ML IV SCH ×2 (09:34→22:50)
[2020-07-05] MEDS: DEXMEDETOMIDINE HCL 400 MCG in SODIUM CHLORIDE 0.9% 100 ML IV SCH ×3 (09:39→21:54)
[2020-07-05] MEDS ORDERED: FLUCONAZOLE 400 MG/NS 200 ML 200 ML IV SCH (10:00)
[2020-07-05 10:26] LABS: APPEARANCE,URINE Cloudy (CLEAR); BILIRUBIN,URINE Negative (NEGATIVE); COLOR,URINE Yellow (YELLOW); GLUCOSE, URINE (UA) >=1000 mg/dL (NEGATIVE); KETONES,URINE Negative (NEGATIVE); LEUKOCYTE ESTERASE ,URINE Trace (NEGATIVE); NITRATE,URINE Negative (NEGATIVE); OCCULT BLOOD,URINE Small (NEGATIVE); PH,URINE 5.5 (5.0-8.0); PROTEIN,URINE Trace mg/dL (NEGATIVE); UROBILINOGEN,URINE 0.2 mg/dL (0.2-1.0)
[2020-07-05 10:56] LABS: WBC,URINE 0-1 /HPF (0-1); YEAST,URINE BUDDING Moderate /HPF (None Seen)
[2020-07-05 10:58] LABS: BACTERIA,URINE Few /HPF (None Seen)
[2020-07-05 10:59] LABS: SQUAMOUS EPITHELIAL CELL,UR 0-2 /HPF (0-2)
[2020-07-05] MEDS ORDERED: MIDAZOLAM 50MG-0.9% NS 50ML 50 ML BAG IV PRN (11:30)
[2020-07-05] MEDS ORDERED: INSULIN HUMULIN R 100 UNIT/ML 3ML SQ SCH (12:00)
[2020-07-05] MEDS: DEXTROSE 5%-WATER 1,000 ML IV SCH ×2 (12:38→23:19)
[2020-07-05] MEDS: INSULIN REGULAR, HUMAN 3ML 100 UNIT in SODIUM CHLORIDE 0.9% 99 ML IV PRN ×2 (16:38)
[2020-07-05] MEDS: FENTANYL 2500MCG+NS 250ML 250 ML IV SCH (17:15)
[2020-07-06] VITALS (35 sets, daily range): BP systolic 88–157; BP diastolic 39–86
[2020-07-06] MEDS: ARTIFICAL TEARS SOL 15 ML OS SCH ×5 (03:42→21:15)
[2020-07-06] MEDS: MEROPENEM 1 GM VIAL IVP SCH ×3 (03:42→16:40)
[2020-07-06 04:46] LABS: BASOPHILS % (AUTO) 0.1 % (0.0-5.0); HEMATOCRIT 37.7 % (36-48); LYMPHOCYTES % (AUTO) 3.3 % (21.0-51.0); MEAN CORPUSCULAR HGB CONC 31.6 g/dL (32.0-36.0); MEAN CORPUSCULAR VOLUME 82.3 fL (79-99); MONOCYTES % (AUTO) 7.1 % (3.0-13.0); NEUTROPHILS % (AUTO) 86.2 % (40.0-77.0); NUCLEATED RED BLOOD CELLS 0.3 % (0.0-0.19); PLATELET COUNT (AUTO) 150 K/uL (130-400); RED BLOOD CELL COUNT(AUTO) 4.58 MIL/uL (4.00-5.50); RED CELL DISTRIBUTION WIDTH 18.9 % (11.0-15.5)
[2020-07-06] MEDS: DEXMEDETOMIDINE HCL 400 MCG in SODIUM CHLORIDE 0.9% 100 ML IV SCH ×4 (04:46→20:38)
[2020-07-06] MEDS: INSULIN HUMULIN R 100 UNIT/ML 3ML SQ SCH ×3 (04:47→18:00)
[2020-07-06] MEDS: CALCIUM CHLORIDE 100 MG/ML 10 ML SYG IVP SCH (04:49)
[2020-07-06 05:10] LABS: ALANINE AMINOTRANSFERASE 49 U/L (12-78); ALBUMIN 2.5 g/dL (3.5-5.0); AMMONIA 30 umol/L (11-32); ASPARTATE AMINOTRANSFERASE 29 U/L (10-37); BILIRUBIN,DIRECT 0.3 mg/dL (0.0-0.3); BILIRUBIN,TOTAL 0.7 mg/dL (0.2-1.0); CARBON DIOXIDE 34 mmol/L (21-32); CHLORIDE 116 mmol/L (101-111); CREATININE 1.8 mg/dL (0.5-1.5); GLOMERULAR FILTR. RATE CALC 33 mL/min (>60); GLUCOSE,RANDOM 229 mg/dL (70-105); POTASSIUM 4.5 mmol/L (3.5-5.1); SODIUM SERUM 156 mmol/L (136-145); TOTAL PROTEIN, SERUM 5.3 g/dL (6.0-8.3); TRIGLYCERIDES 478 mg/dL (30-200)
[2020-07-06 05:19] LABS: CRP QUANTITATIVE < 2.00 mg/L (0.00-9.0)
[2020-07-06 05:23] LABS: UREA NITROGEN, BLOOD 122 mg/dL (7-18)
[2020-07-06 07:41] LABS: ABG BASE EXCESS 9.6 mmol/L (-2.0-3.0); ABG HCO3 34.6 mmol/L (21.0-28.0); ABG OXYGEN SATURATION 87.3 % (95.0-99.0); ABG PCO2 48 mmHg (32-45)
[2020-07-06] MEDS ORDERED: NOREPINEPHRINE 4MG/NS 250ML 250 ML IV STA (08:42)
[2020-07-06] MEDS: ACETAMINOPHEN ELIXIR 650 MG/20.3 ML UDCUP NG SCH (09:00)
[2020-07-06] MEDS: POTASSIUM CHLORIDE 20 MEQ ERTAB PO SCH (09:09)
[2020-07-06] MEDS: PANTOPRAZOLE 40 MG/VIAL IVP SCH ×2 (09:10→21:37)
[2020-07-06] MEDS: FLUCONAZOLE 200 MG/NS 100 ML 100 ML IV SCH (09:24)
[2020-07-06] MEDS: LINEZOLID 600 MG/ISO-OSM 300 ML IV SCH (09:30)
[2020-07-06] MEDS: DEXAMETHASONE SOD PHOSPHATE 4 MG/ML 1ML VIAL IVP SCH ×2 (11:30→16:40)
[2020-07-06] MEDS: DEXTROSE 5%-WATER 1,000 ML IV SCH (11:31)
[2020-07-06] MEDS ORDERED: VANCOMYCIN 1GM+NS 250ML 250 ML IV SCH (11:45)
[2020-07-06] MEDS ORDERED: VANCOMYCIN PROTOCOL PER PHARMACY IV SCH (13:00)
[2020-07-06] MEDS ORDERED: VANCOMYCIN 1.5 GM in SODIUM CHLORIDE 0.9% 250 ML IV ONE (14:00)
[2020-07-06] MEDS: MIDODRINE HCL 5 MG TABLET GT SCH ×2 (14:02→21:37)
[2020-07-06] MEDS: INSULIN REGULAR, HUMAN 3ML 100 UNIT in SODIUM CHLORIDE 0.9% 99 ML IV PRN ×2 (16:41)
[2020-07-06] MEDS: VANCOMYCIN 500MG+NS 100ML 100 ML IV SCH (21:40)
[2020-07-07] VITALS (48 sets, daily range): BP systolic 95–149; BP diastolic 39–74
[2020-07-07] MEDS: DEXMEDETOMIDINE HCL 400 MCG in SODIUM CHLORIDE 0.9% 100 ML IV SCH ×5 (00:47→20:34)
[2020-07-07] MEDS: ARTIFICAL TEARS SOL 15 ML OS SCH ×6 (00:48→20:38)
[2020-07-07] MEDS: DEXAMETHASONE SOD PHOSPHATE 4 MG/ML 1ML VIAL IVP SCH ×3 (01:04→08:29)
[2020-07-07] MEDS: MEROPENEM 1 GM VIAL IVP SCH ×3 (01:04→16:57)
[2020-07-07] MEDS: DEXTROSE 5%-WATER 1,000 ML IV SCH ×2 (02:45→16:09)
[2020-07-07 04:32] LABS: BASOPHILS % (AUTO) 0.2 % (0.0-5.0); HEMATOCRIT 35.3 % (36-48); LYMPHOCYTES % (AUTO) 2.8 % (21.0-51.0); MEAN CORPUSCULAR HGB CONC 31.7 g/dL (32.0-36.0); MEAN CORPUSCULAR VOLUME 82.1 fL (79-99); MONOCYTES % (AUTO) 5.5 % (3.0-13.0); NEUTROPHILS % (AUTO) 88.4 % (40.0-77.0); NUCLEATED RED BLOOD CELLS 0.3 % (0.0-0.19); PLATELET COUNT (AUTO) 139 K/uL (130-400); RED CELL DISTRIBUTION WIDTH 18.9 % (11.0-15.5)
[2020-07-07] MEDS: CALCIUM CHLORIDE 100 MG/ML 10 ML SYG IVP SCH (04:54)
[2020-07-07] MEDS: INSULIN HUMULIN R 100 UNIT/ML 3ML SQ SCH ×4 (04:56→18:05)
[2020-07-07 05:02] LABS: WHITE BLOOD COUNT (AUTO) 30.6 K/uL (4.8-10.8)
[2020-07-07 05:31] LABS: ALANINE AMINOTRANSFERASE 141 U/L (12-78); ALBUMIN 2.4 g/dL (3.5-5.0); ASPARTATE AMINOTRANSFERASE 90 U/L (10-37); BILIRUBIN,TOTAL 1.1 mg/dL (0.2-1.0); CARBON DIOXIDE 30 mmol/L (21-32); CHLORIDE 116 mmol/L (101-111); CREATININE 1.8 mg/dL (0.5-1.5); GLOMERULAR FILTR. RATE CALC 33 mL/min (>60); GLUCOSE,RANDOM 276 mg/dL (70-105); POTASSIUM 5.6 mmol/L (3.5-5.1); SODIUM SERUM 154 mmol/L (136-145)
[2020-07-07 05:37] LABS: CRP QUANTITATIVE < 2.00 mg/L (0.00-9.0); UREA NITROGEN, BLOOD 124 mg/dL (7-18)
[2020-07-07 05:48] LABS: LYMPHOCYTES % (MANUAL) 1 % (22-44); MAN.DIFF COMMENT-IMPRESSION MANUAL DIFFERENTIAL; MONOCYTES % (MANUAL) 4 % (2-9); SEGMENTED NEUTROPHILS % 95 % (40-70)
[2020-07-07] MEDS: MIDODRINE HCL 5 MG TABLET GT SCH ×3 (05:54→20:48)
[2020-07-07 07:21] LABS: ABG BASE EXCESS 7.5 mmol/L (-2.0-3.0); ABG HCO3 32.5 mmol/L (21.0-28.0); ABG OXYGEN SATURATION 99.8 % (95.0-99.0); ABG PCO2 46 mmHg (32-45)
[2020-07-07] MEDS: FENTANYL 2500MCG+NS 250ML 250 ML IV SCH (07:31)
[2020-07-07] MEDS: POTASSIUM CHLORIDE 20 MEQ ERTAB PO SCH (07:36)
[2020-07-07] MEDS: PANTOPRAZOLE 40 MG/VIAL IVP SCH ×2 (08:29→20:54)
[2020-07-07] MEDS: ACETAMINOPHEN ELIXIR 650 MG/20.3 ML UDCUP NG SCH (08:30)
[2020-07-07] MEDS: FLUCONAZOLE 200 MG/NS 100 ML 100 ML IV SCH (08:30)
[2020-07-07] MEDS: VANCOMYCIN 500MG+NS 100ML 100 ML IV SCH ×2 (08:31→20:38)
[2020-07-07] MEDS ORDERED: ENOXAPARIN SODIUM 80 MG/0.8 ML SQ SCH (09:00)
[2020-07-07] MEDS ORDERED: PROTAMINE SULFATE 10 MG/ML 25ML VIAL IV STA ×2 (11:04→11:59)
[2020-07-07] MEDS ORDERED: CISATRACURIUM BESYLATE 100 MG in SODIUM CHLORIDE 0.9% 100 ML IV STA (11:04)
[2020-07-07 11:27] LABS: HEMATOCRIT 35.4 % (36-48)
[2020-07-07 11:42] LABS: INR 1.19 (0.85-1.15); PROTHROMBIN TIME 12.8 SEC (9.6-11.6)
[2020-07-07] MEDS: CISATRACURIUM BESYLATE 100 MG in SODIUM CHLORIDE 0.9% 100 ML IV SCH (11:49)
[2020-07-07] MEDS ORDERED: NOREPINEPHRINE 4MG/NS 250ML 250 ML IV STA (18:50)
[2020-07-07] MEDS ORDERED: VASOPRESSIN 40 UNITS in SODIUM CHLORIDE 0.9% 40 ML IV STA (18:50)
[2020-07-07] MEDS ORDERED: COMPOUND IV REFRIGERATED 1 EACH IVSOLN MISC PRN (21:15)
[2020-07-08] VITALS (80 sets, daily range): BP systolic 64–149; BP diastolic 34–94
[2020-07-08] MEDS: ARTIFICAL TEARS SOL 15 ML OS SCH ×7 (00:32→23:13)
[2020-07-08] MEDS: [UNRECOGNIZED DRUG - OTHER] IV SCH ×3 (00:34→22:35)
[2020-07-08] MEDS: VANCOMYCIN IV SCH ×3 (00:34→22:35)
[2020-07-08] MEDS: MEROPENEM 1 GM VIAL IVP SCH ×3 (00:46→16:35)
[2020-07-08] MEDS: CISATRACURIUM BESYLATE 100 MG in SODIUM CHLORIDE 0.9% 100 ML IV SCH ×2 (01:23→12:34)
[2020-07-08] MEDS: INSULIN REGULAR, HUMAN 3ML 100 UNIT in SODIUM CHLORIDE 0.9% 99 ML IV PRN ×2 (04:12)
[2020-07-08 04:30] LABS: BASOPHILS % (AUTO) 0.3 % (0.0-5.0); HEMATOCRIT 34.4 % (36-48); LYMPHOCYTES % (AUTO) 4.2 % (21.0-51.0); MEAN CORPUSCULAR HEMOGLOBIN 26.4 pg (27.0-33.0); MEAN CORPUSCULAR HGB CONC 31.1 g/dL (32.0-36.0); MEAN CORPUSCULAR VOLUME 84.7 fL (79-99); MONOCYTES % (AUTO) 6.7 % (3.0-13.0); NEUTROPHILS % (AUTO) 85.9 % (40.0-77.0); NUCLEATED RED BLOOD CELLS 0.1 % (0.0-0.19); PLATELET COUNT (AUTO) 106 K/uL (130-400); RED BLOOD CELL COUNT(AUTO) 4.06 MIL/uL (4.00-5.50); RED CELL DISTRIBUTION WIDTH 18.7 % (11.0-15.5)
[2020-07-08 05:04] LABS: ALBUMIN 2.4 g/dL (3.5-5.0); BILIRUBIN,TOTAL 0.9 mg/dL (0.2-1.0); CREATININE 1.7 mg/dL (0.5-1.5); POTASSIUM 5.1 mmol/L (3.5-5.1); TOTAL PROTEIN, SERUM 4.8 g/dL (6.0-8.3)
[2020-07-08] MEDS: DEXMEDETOMIDINE HCL 400 MCG in SODIUM CHLORIDE 0.9% 100 ML IV SCH ×2 (05:05→21:06)
[2020-07-08] MEDS: INSULIN HUMULIN R 100 UNIT/ML 3ML SQ SCH ×5 (05:57→23:12)
[2020-07-08] MEDS: CALCIUM CHLORIDE 100 MG/ML 10 ML SYG IVP SCH (05:57)
[2020-07-08] MEDS: MIDODRINE HCL 5 MG TABLET GT SCH ×3 (06:00→21:18)
[2020-07-08] MEDS: DEXTROSE 5%-WATER 1,000 ML IV SCH ×2 (06:05→21:55)
[2020-07-08 07:26] LABS: ABG BASE EXCESS 2.5 mmol/L (-2.0-3.0); ABG HCO3 25.6 mmol/L (21.0-28.0); ABG OXYGEN SATURATION 93.7 % (95.0-99.0); ABG PCO2 35 mmHg (32-45)
[2020-07-08] MEDS: POTASSIUM CHLORIDE 20 MEQ ERTAB PO SCH (07:40)
[2020-07-08] MEDS: FLUCONAZOLE 200 MG/NS 100 ML 100 ML IV SCH (08:20)
[2020-07-08] MEDS: ZINC SULFATE 220 CAPSULE PO SCH (08:21)
[2020-07-08] MEDS: ASCORBIC ACID 500 MG TAB PO SCH (08:21)
[2020-07-08] MEDS: DEXAMETHASONE SOD PHOSPHATE 4 MG/ML 1ML VIAL IVP SCH (08:21)
[2020-07-08] MEDS: PANTOPRAZOLE 40 MG/VIAL IVP SCH ×2 (08:21→21:57)
[2020-07-08] MEDS: ACETAMINOPHEN ELIXIR 650 MG/20.3 ML UDCUP NG SCH (08:22)
[2020-07-08] MEDS: VASOPRESSIN 40 UNITS in SODIUM CHLORIDE 0.9% 40 ML IV SCH (09:11)
[2020-07-08] MEDS: FENTANYL 2500MCG+NS 250ML 250 ML IV SCH (09:32)
[2020-07-08 10:53] LABS: INR 1.12 (0.85-1.15); PROTHROMBIN TIME 12.1 SEC (9.6-11.6)
[2020-07-08] MEDS ORDERED: MANNITOL 25% 50ML VIAL IV SCH (14:00)
[2020-07-08] MEDS ORDERED: LEVETIRACETAM 500 MG in SODIUM CHLORIDE 0.9% 100 ML IV SCH (21:00)
[2020-07-08] MEDS: FUROSEMIDE 10 MG/ML 2ML VIAL IVP SCH (21:57)
[2020-07-09] VITALS (66 sets, daily range): BP systolic 78–146; BP diastolic 38–86
[2020-07-09] MEDS: MEROPENEM 1 GM VIAL IVP SCH ×2 (01:00→08:05)
[2020-07-09] MEDS: CISATRACURIUM BESYLATE 100 MG in SODIUM CHLORIDE 0.9% 100 ML IV SCH ×2 (03:10→13:33)
[2020-07-09] MEDS: INSULIN HUMULIN R 100 UNIT/ML 3ML SQ SCH ×3 (04:36→18:54)
[2020-07-09] MEDS: ARTIFICAL TEARS SOL 15 ML OS SCH ×5 (04:36→20:00)
[2020-07-09] MEDS: CALCIUM CHLORIDE 100 MG/ML 10 ML SYG IVP SCH (04:37)
[2020-07-09] MEDS ORDERED: NOREPINEPHRINE 4MG/NS 250ML 250 ML IV ONE (04:47)
[2020-07-09] MEDS: MIDODRINE HCL 5 MG TABLET GT SCH ×2 (05:33→15:31)
[2020-07-09] MEDS: DEXMEDETOMIDINE HCL 400 MCG in SODIUM CHLORIDE 0.9% 100 ML IV SCH ×2 (07:39→13:32)
[2020-07-09] MEDS: PANTOPRAZOLE 40 MG/VIAL IVP SCH ×2 (08:05→22:43)
[2020-07-09] MEDS: FUROSEMIDE 10 MG/ML 2ML VIAL IVP SCH (08:06)
[2020-07-09] MEDS: DEXAMETHASONE SOD PHOSPHATE 4 MG/ML 1ML VIAL IVP SCH (08:06)
[2020-07-09] MEDS: FLUCONAZOLE 200 MG/NS 100 ML 100 ML IV SCH (08:07)
[2020-07-09] MEDS: DEXTROSE 5%-WATER 1,000 ML IV SCH (08:07)
[2020-07-09] MEDS: ASCORBIC ACID 500 MG TAB PO SCH (09:00)
[2020-07-09] MEDS: POTASSIUM CHLORIDE 20 MEQ ERTAB PO SCH (09:00)
[2020-07-09] MEDS: ZINC SULFATE 220 CAPSULE PO SCH (09:00)
[2020-07-09] MEDS: VANCOMYCIN IV SCH (11:00)
[2020-07-09] MEDS: [UNRECOGNIZED DRUG - OTHER] IV SCH (11:00)
[2020-07-09 14:39] LABS: HEMATOCRIT 34.4 % (36-48); MEAN CORPUSCULAR HEMOGLOBIN 26.8 pg (27.0-33.0); MEAN CORPUSCULAR HGB CONC 31.1 g/dL (32.0-36.0); MEAN CORPUSCULAR VOLUME 86.2 fL (79-99); NUCLEATED RED BLOOD CELLS 0.1 % (0.0-0.19); PLATELET COUNT (AUTO) 91 K/uL (130-400); RED BLOOD CELL COUNT(AUTO) 3.99 MIL/uL (4.00-5.50); RED CELL DISTRIBUTION WIDTH 19.6 % (11.0-15.5)
[2020-07-09 14:43] LABS: CREATININE 1.3 mg/dL (0.5-1.5); POTASSIUM 4.8 mmol/L (3.5-5.1)
[2020-07-09 14:46] LABS: WHITE BLOOD COUNT (AUTO) 32.8 K/uL (4.8-10.8)
[2020-07-09 15:13] LABS: LYMPHOCYTES % (MANUAL) 2 % (22-44); MONOCYTES % (MANUAL) 2 % (2-9); SEGMENTED NEUTROPHILS % 96 % (40-70)
[2020-07-09 15:14] LABS: MAN.DIFF COMMENT-IMPRESSION MANUAL DIFFERENTIAL
[2020-07-09] MEDS: VASOPRESSIN 40 UNITS in SODIUM CHLORIDE 0.9% 40 ML IV SCH (15:29)
[2020-07-09] MEDS ORDERED: INSULIN HUMULIN R 100 UNIT/ML 3ML SQ SCH (21:00)
[2020-07-10] VITALS (51 sets, daily range): BP systolic 82–141; BP diastolic 39–84
[2020-07-10] MEDS: ARTIFICAL TEARS SOL 15 ML OS SCH ×6 (04:02→20:00)
[2020-07-10] MEDS: CISATRACURIUM BESYLATE 100 MG in SODIUM CHLORIDE 0.9% 100 ML IV SCH ×2 (04:03→15:54)
[2020-07-10] MEDS: CALCIUM CHLORIDE 100 MG/ML 10 ML SYG IVP SCH (05:50)
[2020-07-10] MEDS: INSULIN HUMULIN R 100 UNIT/ML 3ML SQ SCH ×3 (06:00→18:00)
[2020-07-10] MEDS: FENTANYL 2500MCG+NS 250ML 250 ML IV SCH (08:11)
[2020-07-10] MEDS: PANTOPRAZOLE 40 MG/VIAL IVP SCH ×2 (08:11→21:00)
[2020-07-10] MEDS: NOREPINEPHRINE 4MG/NS 250ML 250 ML IV PRN (09:48)
[2020-07-10] MEDS: VASOPRESSIN 40 UNITS in SODIUM CHLORIDE 0.9% 40 ML IV SCH (09:49)
[2020-07-10] MEDS: DEXMEDETOMIDINE HCL 400 MCG in SODIUM CHLORIDE 0.9% 100 ML IV SCH ×2 (12:53→21:28)
[2020-07-10] MEDS ORDERED: MIDAZOLAM 100MG-0.9% NS 100ML 100ML BAG IV ONE (18:45)
[2020-07-10] MEDS: MIDAZOLAM 100MG-0.9% NS 100ML 100 ML IV PRN (19:19)
[2020-07-11] VITALS (43 sets, daily range): BP systolic 104–142; BP diastolic 46–78
[2020-07-11] MEDS: CISATRACURIUM BESYLATE 100 MG in SODIUM CHLORIDE 0.9% 100 ML IV SCH (02:46)
[2020-07-11] MEDS: DEXMEDETOMIDINE HCL 400 MCG in SODIUM CHLORIDE 0.9% 100 ML IV SCH ×2 (02:48→10:24)
[2020-07-11] MEDS: FENTANYL 2500MCG+NS 250ML 250 ML IV SCH ×2 (03:24→22:18)
[2020-07-11] MEDS: ARTIFICAL TEARS SOL 15 ML OS SCH ×6 (04:00→22:08)
[2020-07-11] MEDS: INSULIN HUMULIN R 100 UNIT/ML 3ML SQ SCH ×3 (06:00→12:00)
[2020-07-11] MEDS: CALCIUM CHLORIDE 100 MG/ML 10 ML SYG IVP SCH (06:13)
[2020-07-11] MEDS: PANTOPRAZOLE 40 MG/VIAL IVP SCH (08:26)
[2020-07-11] MEDS: MIDAZOLAM 100MG-0.9% NS 100ML 100 ML IV PRN (13:03)
[2020-07-11] MEDS ORDERED: DEXMEDETOMIDINE HCL 400 MCG in SODIUM CHLORIDE 0.9% 100 ML IV PRN (20:30)
[2020-07-11] MEDS: VASOPRESSIN 40 UNITS in SODIUM CHLORIDE 0.9% 40 ML IV SCH (23:50)
[2020-07-12] VITALS (31 sets, daily range): BP systolic 113–152; BP diastolic 55–98
[2020-07-12] MEDS: ARTIFICAL TEARS SOL 15 ML OS SCH ×6 (01:38→23:59)
[2020-07-12] MEDS: CALCIUM CHLORIDE 100 MG/ML 10 ML SYG IVP SCH (05:58)
[2020-07-12] MEDS: NOREPINEPHRINE 4MG/NS 250ML 250 ML IV PRN (06:51)
[2020-07-12] MEDS: FENTANYL 2500MCG+NS 250ML 250 ML IV SCH (12:54)
[2020-07-13] VITALS (17 sets, daily range): BP systolic 125–148; BP diastolic 63–83
[2020-07-13] MEDS: ARTIFICAL TEARS SOL 15 ML OS SCH ×3 (01:59→08:50)
[2020-07-13] MEDS: VASOPRESSIN 40 UNITS in SODIUM CHLORIDE 0.9% 40 ML IV SCH (03:06)
[2020-07-13] MEDS: CALCIUM CHLORIDE 100 MG/ML 10 ML SYG IVP SCH (04:44)
[2020-07-13] MEDS: FENTANYL 2500MCG+NS 250ML 250 ML IV SCH (06:15)
[2020-07-13] MEDS ORDERED: MORPHINE SULFATE 2 MG/ML 1ML SYG ONE (12:52)
[2020-07-13] MEDS ORDERED: LORAZEPAM 2 MG/ML 1 ML VIAL ONE (12:53)
[2020-07-13] MEDS ORDERED: GLYCOPYRROLATE 1 MG/5 ML SYRINGE ONE (12:54)
[2020-07-13] MEDS ORDERED: GLYCOPYRROLATE 1 MG/5 ML SYRINGE IV SCH (13:00)
[2020-07-13] MEDS: LORAZEPAM 2 MG/ML 1 ML VIAL IVP SCH ×2 (13:00→14:22)
[2020-07-13] MEDS: MORPHINE SULFATE 2 MG/ML 1ML SYG IVP SCH ×2 (13:00→14:22)
== END 2020-07-13 14:40 | disposition expired | DRG 870 ==
LOC: EDH 00:15 → EDHIP 04:50 → 2AH 08:58 → 2BH 06-27 10:41
PROVIDERS: ADMIT Internal Medicine; ATTEND Internal Medicine
PROC: 5A09357 Assistance with Respiratory Ventilation, Less than 24 Consecutive Hours, Continuous Positive Airway Pressure (ICD-10-PCS; 2020-06-26)
PROC: 5A1955Z Respiratory Ventilation, Greater than 96 Consecutive Hours (ICD-10-PCS; principal; 2020-06-27)
PROC: 0BH17EZ Insertion of Endotracheal Airway into Trachea, Via Natural or Artificial Opening (ICD-10-PCS; 2020-06-27)
PROC: XW13325 Transfusion of Convalescent Plasma (Nonautologous) into Peripheral Vein, Percutaneous Approach, New Technology Group 5 (ICD-10-PCS; 2020-06-30)
PROC: XW033E5 Introduction of Remdesivir Anti-infective into Peripheral Vein, Percutaneous Approach, New Technology Group 5 (ICD-10-PCS; 2020-06-30)
PROC: 06HY33Z Insertion of Infusion Device into Lower Vein, Percutaneous Approach (ICD-10-PCS; 2020-07-06)
PROC: B543ZZA Ultrasonography of Right Jugular Veins, Guidance (ICD-10-PCS; 2020-07-06)
DX: A41.89 Other specified sepsis (principal); U07.1 COVID-19; N17.0 Acute kidney failure with tubular necrosis; I21.4 Non-ST elevation (NSTEMI) myocardial infarction; J80 Acute respiratory distress syndrome; R65.21 Severe sepsis with septic shock; K72.00 Acute and subacute hepatic failure without coma; E87.1 Hypo-osmolality and hyponatremia; B37.49 Other urogenital candidiasis; G93.40 Encephalopathy, unspecified; Z68.43 Body mass index [BMI] 50.0-59.9, adult; E87.0 Hyperosmolality and hypernatremia; E66.01 Morbid (severe) obesity due to excess calories; B97.89 Other viral agents as the cause of diseases classified elsewhere; E11.65 Type 2 diabetes mellitus with hyperglycemia; E87.5 Hyperkalemia; D69.6 Thrombocytopenia, unspecified; E86.0 Dehydration; E86.1 Hypovolemia; D89.839 Cytokine release syndrome, grade unspecified; E87.8 Other disorders of electrolyte and fluid balance, not elsewhere classified; G47.33 Obstructive sleep apnea (adult) (pediatric); I10 Essential (primary) hypertension; Z51.5 Encounter for palliative care; Z66 Do not resuscitate; Z74.01 Bed confinement status; Z79.4 Long term (current) use of insulin; Z82.49 Family history of ischemic heart disease and other diseases of the circulatory system; Z86.73 Personal history of transient ischemic attack (TIA), and cerebral infarction without residual deficits; Z90.49 Acquired absence of other specified parts of digestive tract; Z98.51 Tubal ligation status
CPT/HCPCS: 31500; 36415; 36430; 36600; 70450; 71045; 76770; 80048; 80053; 80076; 80202; 81001; 82140; 82248; 82330; 82435; 82436; 82550; 82565; 82728; 82803; 82947; 82948; 83605; 83615; 83735; 83874; 83935; 84100; 84132; 84133; 84145; 84295; 84300; 84443; 84478; 84484; 84550; 85014; 85018; 85025; 85027; 85378; 85384; 85610; 85730; 86140; 86606; 86850; 86900; 86901; 86927; 87040; 87071; 87076; 87088; 87101; 87205; 87206; 87449; 87641; 93005; 93306; 93970; 94002; 94003; 94660; C1751; C1894; C9113; G0378; J0330; J0360; J0456; J0696; J1100; J1200; J1450; J1650; J1815; J1940; J1953; J2020; J2060; J2150; J2185; J2405; J2704; J2720; J2920; J2930; J3010; J3370; J3490; J7050; J7070; J7120; J8540; U0003